=== PATIENT | female | born 1985 | race African-American/Black ===

== ENCOUNTER 2016-04-25 23:11 | Emergency (ER) | payer BC, OTHER ==
[~2016-04-25] VITALS: Ht 157.5 cm; Wt 56.7 kg
[2016-04-25] MEDS ORDERED: LEVOTHYROXINE 0.1 MG PO (23:42)
[2016-04-25] MEDS ORDERED: VALACYCLOVIR500 MG PO (23:43)
[2016-04-25] MEDS ORDERED: METFORMIN HCL500 MG PO (23:43)
[2016-04-25] MEDS ORDERED: SKYLA1 EACH IY (23:44)
[2016-04-25] MEDS ORDERED: ALLER-EASE180 MG PO (23:45)
[2016-04-25] MEDS ORDERED: LEXAPRO20 MG PO (23:46)
[2016-04-26 00:57] LABS: ABSOLUTE NEUTROPHILS 2.5 thou/uL (1.4-8.2); BASOPHILS 2.7 % (0.0-2.0); EOSINOPHILS 1.8 % (0.0-3.0); HEMATOCRIT 44.8 % (37.0-47.0); HEMOGLOBIN 14.5 gm/dL (12.0-15.0); LYMPHOCYTES 29.8 % (24.0-44.0); MCH 28.3 pg (26.0-34.0); MCHC 32.3 % (28.0-37.0); MCV 87.8 fL (80.0-100.0); MONOCYTES 4.5 % (1.0-8.0); PLATELET COUNT 380 thou/uL (150-400); POLYS 61.2 % (36.0-66.0); WBC 4.1 thou/uL (4.0-11.0)
[2016-04-26 01:09] LABS: POTASSIUM 4.2 mmol/L (3.5-5.1)
[2016-04-26 01:22] LABS: MANUAL DIFF NO
[2016-04-26 01:48] VITALS: BP 106/70
== END 2016-04-26 01:49 | disposition home or self-care (01) ==
LOC: ER 23:11
PROVIDERS: Emergency Medicine
DX: B34.9 Viral infection, unspecified (principal); Z88.8 Allergy status to other drugs, medicaments and biological substances; Z88.2 Allergy status to sulfonamides